=== PATIENT | male | born 2000 | race Caucasian/White ===

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

== ENCOUNTER 2020-04-23 14:18 | Inpatient (IN) ==
[2020-04-23] MEDS ORDERED: ONDANSETRON 4 MG OD TAB PO STA (14:42)
[2020-04-23] MEDS ORDERED: KETOROLAC TROMETHAMINE 15 MG/ML VIAL IV STA (14:42)
[2020-04-23] MEDS ORDERED: ONDANSETRON INJ 2 MG/ML 2 ML VIAL IV STA (15:06)
[2020-04-23] MEDS: MoRPHine SULFATE 4 MG/ML 1 ML CARP\\VIAL IV PRN ×2 (15:07→19:54)
[2020-04-23] MEDS ORDERED: SODIUM CHLORIDE 0.9% 1000ML 500 ML IV ONE (15:07)
[2020-04-23] MEDS ORDERED: SODIUM CHLORIDE 0.9% 1000ML 1,000 ML IV SCH (15:15)
[2020-04-23 15:22] LABS: Eosinophils # (auto) 0.02 K/uL (0-0.5); Eosinophils % (auto) 0.2 %; Hematocrit (blood only) 49.6 % (42-52); Hemoglobin 17.8 g/dL (14.0-18.0); Immature Granulocytes # (auto) 0.02 K/uL (0.00-0.02); Immature Granulocytes % (auto) 0.2 %; Lymphocytes # (auto) 0.71 K/uL (1.2-3.4); Lymphocytes % (auto) 7.9 %; Mean Corpuscular Hemoglobin 30.4 pg (25-34); Mean Corpuscular Hgb Conc 35.9 g/dL (32-36); Mean Corpuscular Volume 84.8 fL (80-100); Mean Platelet Volume 10.2 fL (7.4-10.4); Monocytes # (auto) 0.72 K/uL (0.11-0.59); Monocytes % (auto) 8.1 %; Neutrophils # (auto) 7.47 K/uL (1.4-6.5); Neutrophils % (auto) 83.6 %; Platelet Count 190 K/uL (130-400); RDW Coefficient of Variation 12.6 % (11.5-14.5); RDW Standard Deviation 39.4 fL (36.4-46.3); Red Blood Count 5.85 M/uL (4.7-6.1); White Blood Count 8.94 K/uL (4.8-10.8)
[2020-04-23 15:27] LABS: Appearance Urine Clear (Clear); Blood Urine Negative (Negative); Color Urine Dark Yellow; Glucose Urine UA Negative (Negative); Ketones Urine Negative (Negative); Leukocyte Esterase Urine Negative (Negative); Nitrite Urine Negative (Negative); Protein Urine Negative (Negative); Specific Gravity Urine 1.034 (1.000-1.030); Urobilinogen Urine Negative (Negative)
[2020-04-23 15:36] LABS: Bilirubin Urine Negative (Negative); Ictotest Urine Negative (Negative)
[2020-04-23 15:39] LABS: Albumin Level 4.1 gm/dl (3.4-5.0); BUN Creatinine Ratio 12.5 (10-20); Calcium 9.8 mg/dl (8.5-10.1); Creatinine Clr Calc Pharmacy 135.3 ml/min; Est GFR (African American) 115.7; Est GFR (Non-African American) 99.8; Potassium 3.7 mmol/L (3.5-5.1)
[2020-04-23 15:42] LABS: Albumin Globulin Ratio 0.9 (0.9-2); Globulin 4.4 gm/dl (2.5-4.0); Total Protein 8.5 gm/dl (6.4-8.2)
[2020-04-23] MEDS ORDERED: IOVERSOL 100ml IV ONE (16:10)
--- NOTE | 2020-04-23 16:25 | CT Scan Report ---
ABDOMEN AND PELVIS CT WITH IV CONTRAST CT DOSE: 1119.51 mGycm HISTORY: Right upper right lower quadrant pain. TECHNIQUE: Multiaxial CT images of the abdomen and pelvis were performed following the use of intrave nous contrast. A dose lowering technique was utilized adhering to the principles of ALARA. COMPARISON STUDY: Abdomen and pelvis CT 10/27/2019. FINDINGS: The lung bases are clear. No pneumoperitoneum. No pneumatosis. The liver, spleen, adrenal g lands, pancreas, gallbladder, and left kidney are unremarkable. An 8 mm hypodense lesion within the l ower pole the right kidney. This remains unchanged. This is technically too small to characterize but favors a cyst. No retroperitoneal lymphadenopathy. The main portal vein is patent. Normal caliber ab dominal aorta. The bladder is unremarkable. Trace pelvic free fluid. No fractures within the visualiz ed osseous structures. Slightly prominent fluid-filled loops of small bowel in the right upper quadra nt. Multiple thickened loops of distal ileum to the level of the ileocecal valve. These thickened loo ps of small bowel are seen within the right lower quadrant and deep pelvis. A few prominent ileocolic lymph nodes which are likely reactive. The colon and appendix appear within normal limits. IMPRESSION: 1. Multiple thickened loops of distal ileum to the level of the ileocecal valve consistent with a non specific ileitis. This favors an infectious or inflammatory process such as Crohn's disease. 2. A few borderline dilated fluid-filled loops of mid small bowel within the right side of the the ab domen. This could represent a low-grade partial bowel obstruction secondary to the thickened loops of distal ileum. 3. Normal appendix. ACT 112: Negative or not required by law. Electronically signed by: Gideon Keith M.D. 04/23/2020 4:24 PM
[2020-04-23] MEDS ORDERED: ACETAMINOPHEN 325 MG TAB PO STA (17:04)
[2020-04-23] MEDS ORDERED: ACETAMINOPHEN 325 MG TAB PO PRN (17:05)
[2020-04-23] MEDS ORDERED: ONDANSETRON INJ 2 MG/ML 2 ML VIAL IV PRN (17:39)
--- NOTE | 2020-04-23 18:20 | History & Physical Report ---
Date of Service April 23, 2020 Assessment & Plan (1) Ileitis: hx most consistent w viral GE, although CT does raise concern for crohns. sx improving. for now supportive care. will ask GI for opinion and/or consideration for colo IVF for dehydration clear liquid diet since sx improving and he's feeling better morphine prn pain (2) DVT prophylaxis: young, healthy, mobile - treatment not indicated (3) Discharge planning issues: admit med surg, care as above, await GI input. home once pain controlled/symptoms abating, tolerating PO History of Present Illness Chief Complaint: abdominal pain Primary Care Provider: NO PCP yesterday fairly abrupt onset of abdominal pain and watery diarrhea (not bloody) - multiple episodes, pain would come and go in waves. some chills and sweats. maybe a little nausea no vomiting. figured it was a stomach bug so he just managed at home - but today pain got more intense and while still coming and going in waves, was intense enough and often enough he was a bit worried about appendicitis - came to ER for further eval. here CT showed a nonspecific ileitis. now actually feeling better - pain meds helped, and since here he's had more stool - still loose but thickening. stomach felt fine recently otherw ise - except for one day of diarrhea and nausea about 1-2wks ago - although at that time there were other people at work who had food poisoning. Allergies Allergy/AdvReac Type Severity Reaction Status Date / Time No Known Allergies Allergy Verified 04/23/20 15:40 Home Medications Home Medications Medication Instructions Recorded Confirmed Type No Known Home Medications 04/23/20 04/23/20 History Past Med/Surg History Medical History (Updated 04/23/20 @ 18:18 by Landon Houser DO) No significant past medical history Family History (Updated 04/23/20 @ 18:16 by Landon Houser DO) Other Adopted Social History Smoking Status: Never smoker Tobacco Type: Smokeless Tobacco (Dip or Chew) Preferred Language: Cymraes Feels Safe at Home: Yes Review of Systems Review of Systems: All systems reviewed & are unremarkable except as noted in HPI & below Physical Exam Physical Exam: gen aaox3 pleasant fatigued nad heent nc at mmm neck full ROM cardio reg no r/m/g lungs cta b/l no rrw good effort abd soft nondistended, no upper tenderness mild LLQ mostly seems to refer R, fairly severe RLQ and suprapubic tenderness but no guarding no rebound no rigidity ext - no c/c/e no calf tenderness skin no rashes no pallor or icterus neuro - cn 2-12 grossly intact gross motor/sensory intact mental - good recent and remote recall normal mood and affect good judgement and insight Results & Data Results & Data ([facility]) Vital Signs (Past 12 Hours) Vital Signs Temp Pulse Pulse Resp BP BP Pulse Ox 04/23/20 18:05 74 24 109/70 97 04/23/20 18:00 74 24 109/70 97 04/23/20 17:30 73 19 121/68 97 04/23/20 17:01 82 18 109/75 98 04/23/20 16:30 73 25 H 97/52 L 96 04/23/20 16:23 71 75 15 127/72 127/72 98 04/23/20 16:00 64 20 122/76 96 04/23/20 15:30 71 17 101/53 L 95 04/23/20 15:02 88 87 16 132/84 132/84 96 04/23/20 14:19 98.6 F 91 H 20 126/94 98 Code Status & VTE Plan VTE Prophylaxis Plan VTE Prophylaxis will be ordered: No PG Care Time/CCT Total # of Minutes Spent Total Time Spent with Patient: Total time spent is greater than 50% in coordination of care (as documented) at patient's floor/unit and/or counseling patient: Coding Level of Care Code 49793 Initial Inpt Care Lvl 3 Diagnoses Ileitis K52.9 DVT prophylaxis Z29.9 Discharge planning issues Z02.9
--- NOTE | 2020-04-23 18:48 | Emergency Department Note ---
ED Visit Note Patient seen and evaluated in conjunction with Dr. Carpenter in the ED. Please see her note for medical decision making. . Resident Activity Tracking Resident Involvement: Resident Care Provided Care Provided: Adult ED
[2020-04-23] MEDS: LACTATED RINGER'S 1,000 ML IV SCH (19:47)
--- NOTE | 2020-04-23 19:50 | Emergency Department Note ---
History of Present Illness General Chief complaint: Abdominal Pain Stated complaint: RT SIDED ABD PAIN,LIGHT HEADED, DIZZY,DIARRHEA Time Seen by Provider: 04/23/20 14:34 Source: patient and RN notes reviewed Mode of arrival: ambulatory Limitations: no limitations History of Present Illness Provider complaint: Right-sided abdominal pain, diarrhea, lightheaded Maximum Pain Intensity: 8 This patient is a 19-year-old male who presents emergency department with complaints of right upper and lower abdominal pain for the last 12 to 24 hours. Patient states it began with significant amounts of diarrhea yesterday. He states he "could not leave the toilet." He denies blood in the stools. Patient denies any vomiting or fevers. 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 He denies chest pain, shortness of breath and does feel as though the pain is exacerbated after eating. He denies any difficulty with urination. 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 and A total of 10 systems reviewed and were otherwise negative Physical Exam Vital Signs Vital Signs - 24 hr 04/23/20 14:19 04/23/20 15:02 04/23/20 15:30 Temperature 37 C Temperature Source Oral Pulse Rate 91 H 88 71 Pulse Rate [Apical] 87 Pulse Rate from SpO2 Sensor 83 71 Pulse Rhythm Regular Regular Pulse Rhythm [Apical] Regular Pulse Strength [Apical] Normal Respiratory Rate 20 16 17 Respiratory Effort / Characteristics Non-Labored Spontaneous Non-Labored Spontaneous Respiratory Depth Normal Normal Respiratory Pattern Regular Regular Blood Pressure 126/94 132/84 101/53 L Blood Pressure [Left Arm] 132/84 Blood Pressure Mean 104 107 64 Blood Pressure Mean [Left Arm] 100 Blood Pressure Position [Left Arm] Semi-fowlers Pulse Oximetry 98 96 95 Oxygen Delivery Method Room Air Room Air Room Air Sepsis Recent Fever Within 48 Hours No Sepsis New/Unexplained Change in Mental Status No Sepsis Action Taken by Nursing No Action Required 04/23/20 16:00 04/23/20 16:23 04/23/20 16:30 Temperature Temperature Source Pulse Rate 64 71 73 Pulse Rate [Apical] 75 Pulse Rate from SpO2 Sensor 63 73 74 Pulse Rhythm Pulse Rhythm [Apical] Regular Pulse Strength [Apical] Normal Respiratory Rate 20 15 25 H Respiratory Effort / Characteristics Non-Labored Spontaneous Respiratory Depth Normal Respiratory Pattern Regular Blood Pressure 122/76 127/72 97/52 L Blood Pressure [Left Arm] 127/72 Blood Pressure Mean 81 83 66 Blood Pressure Mean [Left Arm] 90 Blood Pressure Position [Left Arm] Semi-fowlers Pulse Oximetry 96 98 96 Oxygen Delivery Method Room Air Sepsis Recent Fever Within 48 Hours Sepsis New/Unexplained Change in Mental Status Sepsis Action Taken by Nursing 04/23/20 17:01 04/23/20 17:30 Temperature Temperature Source Pulse Rate 82 73 Pulse Rate [Apical] Pulse Rate from SpO2 Sensor 79 72 Pulse Rhythm Pulse Rhythm [Apical] Pulse Strength [Apical] Respiratory Rate 18 19 Respiratory Effort / Characteristics Respiratory Depth Respiratory Pattern Blood Pressure 109/75 121/68 Blood Pressure [Left Arm] Blood Pressure Mean 92 86 Blood Pressure Mean [Left Arm] Blood Pressure Position [Left Arm] Pulse Oximetry 98 97 Oxygen Delivery Method Sepsis Recent Fever Within 48 Hours Sepsis New/Unexplained Change in Mental Status Sepsis Action Taken by Nursing Vital signs reviewed. General: Well-appearing 19-year-old male, in no significant distress. HEENT: No scleral icterus, PERRLA, neck supple. Atraumatic. Cardiovascular: Regular rate and rhythm, no extra sounds. Pulmonary: Clear to auscultation bilaterally, normal work of breathing. Abdomen: Soft, tender to palpation in the right lower quadrant, positive guarding, nondistended, positive bowel sounds. Musculoskeletal: Atraumatic, no peripheral edema. Neurologic: Patient awake alert and oriented x 3 Skin: Warm, dry, no rash Course Administered Medications Lactated Ringer's (Lr) 1,000 mls @ 125 mls/hr IV .Q8H FREDERICK Stop: 05/23/20 19:23 Last Admin: 04/23/20 19:47 Dose: 125 mls/hr Documented by: [id number] Morphine Sulfate (Morphine Sulfate 4 Mg/Ml 1 Ml Carp\\Vial) 4 mg IV Q3H PRN PRN Reason: Pain (6,7,8,9,10) Stop: 05/07/20 14:55 Last Admin: 04/23/20 19:54 Dose: 4 mg Documented by: [id number] Admin: 04/23/20 15:07 Dose: 4 mg Documented by: [id number] Discontinued Medications Acetaminophen (Acetaminophen 325 Mg Tab) 650 mg PO Q8 STA Stop: 04/23/20 17:05 Last Admin: 04/23/20 17:08 Dose: Not Given Documented by: [id number] Sodium Chloride (Nss 1000ml) 500 mls @ 999 mls/hr IV .Q31M ONE Stop: 04/23/20 15:37 Last Infusion: 04/23/20 15:45 Dose: 0 mls/hr Documented by: [id number] Admin: 04/23/20 15:12 Dose: 999 mls/hr Documented by: [id number] Sodium Chloride (Nss 1000ml) 1,000 mls @ 200 mls/hr IV .Q5H FREDERICK Stop: 05/23/20 15:14 Last Infusion: 04/23/20 18:09 Dose: 0 mls/hr Documented by: [id number] Infusion: 04/23/20 18:09 Dose: 0 mls/hr Documented by: [id number] Admin: 04/23/20 15:52 Dose: 200 mls/hr Documented by: [id number] Ioversol (Ioversol 100ml) 93 ml IV ONCE ONE Stop: 04/23/20 16:11 Last Admin: 04/23/20 16:10 Dose: 1 ml Documented by: [id number] Ketorolac Tromethamine (Ketorolac Tromethamine 15 Mg/Ml Vial) 15 mg IV NOW STA Stop: 04/23/20 14:43 Last Admin: 04/23/20 15:52 Dose: Not Given Documented by: [id number] Ondansetron HCl (Ondansetron 4 Mg Od Tab) 4 mg PO NOW STA Stop: 04/23/20 14:43 Last Admin: 04/23/20 15:07 Dose: 4 mg Documented by: [id number] Ondansetron HCl (Ondansetron Inj 2 Mg/Ml 2 Ml Vial) 4 mg IV NOW STA Stop: 04/23/20 15:07 Last Admin: 04/23/20 15:12 Dose: 4 mg Documented by: [id number] Medical Decision Making Differential Diagnosis Differential diagnosis: Etiologies such as biliary colic, cholecystitis, hepatitis, pancreatitis, cardiac disease, pancreatitis, gastritis, peptic ulcer disease, appendicitis, cystitis, diverticulitis, mesenteric ischemia, inflammatory bowel disease, ileus, bowel obstruction, testicular torsion, aortic pathology, shingles, as well as others were considered. Medical Records Attestation: I reviewed the patient's medical records. Home Medications Current Medication List: was personally reviewed by me Laboratory Data Attestation: I reviewed the patient's lab results. Result diagrams: 04/23/20 14:57 04/23/20 14:57 Lab Results 04/23/20 04/23/20 04/23/20 Range/Units 14:51 14:57 14:57 WBC 8.94 (4.8-10.8) K/uL RBC 5.85 (4.7-6.1) M/uL Hgb 17.8 (14.0-18.0) g/dL Hct 49.6 (42-52) % MCV 84.8 (80-100) fL MCH 30.4 (25-34) pg MCHC 35.9 (32-36) g/dL RDW Std Deviation 39.4 (36.4-46.3) fL RDW Coeff of [place] 12.6 (11.5-14.5) % Plt Count 190 (130-400) K/uL MPV 10.2 (7.4-10.4) fL Immature Gran % (Auto) 0.2 % Neut % (Auto) 83.6 % Lymph % (Auto) 7.9 % [place] % (Auto) 8.1 % Eos % (Auto) 0.2 % Baso % (Auto) 0.0 % Neut # (Auto) 7.47 H (1.4-6.5) K/uL Lymph # (Auto) 0.71 L (1.2-3.4) K/uL [place] # (Auto) 0.72 H (0.11-0.59) K/uL Eos # (Auto) 0.02 (0-0.5) K/uL Baso # (Auto) 0.00 (0-0.2) K/uL Immature Gran # (Auto) 0.02 (0.00-0.02) K/uL Sodium 138 (136-145) mmol/L Potassium 3.7 (3.5-5.1) mmol/L Chloride 105 (98-107) mmol/L Carbon Dioxide 26 (21-32) mmol/L Anion Gap 7.0 (3-11) BUN 13 (7-18) mg/dl Creatinine 1.06 (0.6-1.4) mg/dl Est Cr Clr Drug Dosing 135.3 ml/min Est GFR ( Amer) 115.7 Est GFR (Non-Af Amer) 99.8 BUN/Creatinine Ratio 12.5 (10-20) Glucose 90 (70-99) mg/dl Calcium 9.8 (8.5-10.1) mg/dl Total Bilirubin 1.0 (0.2-1) mg/dl AST 13 L (15-37) U/L ALT 27 (12-78) U/L Alkaline Phosphatase 52 (45-117) U/L Total Protein 8.5 H (6.4-8.2) gm/dl Albumin 4.1 (3.4-5.0) gm/dl Globulin 4.4 H (2.5-4.0) gm/dl Albumin/Globulin Ratio 0.9 (0.9-2) Lipase 73 (73-393) U/L Urine Color Dark Yellow Urine Appearance Clear (Clear) Urine pH 5.0 (4.5-7.5) Ur Specific [place] 1.034 H (1.000-1.030) Urine Protein Negative (Negative) Urine Glucose (UA) Negative (Negative) Urine Ketones Negative (Negative) Urine Blood Negative (Negative) Urine Nitrite Negative (Negative) Urine Bilirubin Negative (Negative) Urine Urobilinogen Negative (Negative) Ur Leukocyte Esterase Negative (Negative) Imaging Data Radiologist's Impression: ABDOMEN AND PELVIS CT WITH IV CONTRAST CT DOSE: 1119.51 mGycm HISTORY: Right upper right lower quadrant pain. TECHNIQUE: Multiaxial CT images of the abdomen and pelvis were performed following the use of intravenous contrast. A dose lowering technique was utilized adhering to the principles of ALARA. COMPARISON STUDY: Abdomen and pelvis CT 10/27/2019. FINDINGS: The lung bases are clear. No pneumoperitoneum. No pneumatosis. The liver, spleen, adrenal glands, pancreas, gallbladder, and left kidney are unremarkable. An 8 mm hypodense lesion within the lower pole the right kidney. This remains unchanged. This is technically too small to characterize but favors a cyst. No retroperitoneal lymphadenopathy. The main portal vein is patent. Normal caliber abdominal aorta. The bladder is unremarkable. Trace pelvic free f luid. No fractures within the visualized osseous structures. Slightly prominent fluid-filled loops of small bowel in the right upper quadrant. Multiple thickened loops of distal ileum to the level of the ileocecal valve. These thickened loops of small bowel are seen within the right lower quadrant and deep pelvis. A few prominent ileocolic lymph nodes which are likely reactive. The colon and appendix appear within normal limits. IMPRESSION: 1. Multiple thickened loops of distal ileum to the level of the ileocecal valve consistent with a nonspecific ileitis. This favors an infectious or inflammatory process such as Crohn's disease. 2. A few borderline dilated fluid-filled loops of mid small bowel within the right side of the the abdomen. This could represent a low-grade partial bowel obstruction secondary to the thickened loops of distal ileum. 3. Normal appendix. ACT 112: Negative or not required by law. Electronically signed by: Gideon Keith M.D. 04/23/2020 4:24 PM Dictated: 04/23/20 161 Transcribed: 04/23/201616 Blood Pressure Blood Pressure Findings: Normal blood pressure Blood Pressure Disposition: did not require urgent referral MDM Narrative This patient was evaluated and appeared to be in some discomfort. IV access was obtained and laboratory work was drawn. An order for cardiac monitoring was placed and the patient is noted to be in a sinus rhythm at 86 bpm. Patient was medicated with 4 mg of IV morphine and 4 mg Zofran ODT. The patient vomited shortly thereafter. 4 mg of IV Zofran was then administered and the patient was hydrated with normal saline solution. Laboratory work reveals a normal WBC with a mild left shift. CT imaging of the abdomen and pelvis was performed due to significant tenderness over the right lower quadrant. This imaging is consistent with an acute ileitis with a possibility of a partial small bowel obstruction. There is also concern over infectious or inflammatory process. Stool cultures and C. difficile testing were ordered. Patient was advised of the findings. He was discussed with the hospitalist and will be evaluated for further management. Patient is aware of the plan and agrees. Impression & Plan Ileitis, terminal, Diarrhea Discharge Plan Visit Data Chief Complaint: Abdominal Pain Stated Complaint: RT SIDED ABD PAIN,LIGHT HEADED, DIZZY,DIARRHEA ED Provider: Emiliana Carpenter ED Midlevel Provider: Anitha Shelton Discharge Problem: Ileitis, terminal, Diarrhea Patient Disposition: Admitted As Inpatient Discharge Instructions Interventions: ED Discharge Assessment Last Done: 04/23/20 18:05 Discharge Problem: Ileitis, terminal Qualifiers: Digestive disease complication type: without complication Qualified Code(s): K50.00 - Crohn's disease of small intestine without complications Diarrhea Qualifiers: Diarrhea type: unspecified type Qualified Code(s): R19.7 - Diarrhea, unspecified
[2020-04-24] MEDS: MoRPHine SULFATE 4 MG/ML 1 ML CARP\\VIAL IV PRN ×2 (03:04→08:15)
[2020-04-24] MEDS: LACTATED RINGER'S 1,000 ML IV SCH ×2 (03:05→10:37)
--- NOTE | 2020-04-24 09:58 | Gastrointestinal Consultation ---
Date of Consultation April 24, 2020 Assessment & Plan (1) Ileitis, terminal: (2) Diarrhea: Differential diagnoses include: viral vs bacterial vs Crohn's vs other. Given patient is clinically improved, suspect a self limited gastroenteritis. Discussed case with Dr. Houser and patient likely to be discharged today. Discussed that he should have close outpatient follow up in our office. Can discuss the utility of outpatient colonoscopy at that time. Can advance diet as tolerated. Recommend ongoing NSAID avoidance and supportive care. Thank you for allowing us to participate in the care of this pleasant patient. If you have any questions or concerns, please do not hesitate to contact us. Supervising Physician Co-Signing Physician Notes I personally evaluated the patient and agree with the findings as documented by GUI Rodriguez Exam: abd: soft, nt, nd will need outpatient colonoscopy to further evaluate ileitis. History of Present Illness Reason for Consultation: Nonspecific ileitis Requesting Physician: Dr. Houser Attending Physician: Landon Houser DO History of Present Illness Patient is a pleasant 19 year-old male admitted after an abrupt onset of abdom inal pain and watery diarrhea beginning one david prior to arrival. He states the pain was mostly in the lower abdomen and very intense when it would occur, but would wax and wane. Denies any bloody or black stools. The only associated symptoms were of fatigue and chills without fever. On arrival, he was found to be normotensive, no leukocytosis or anemia and was without any renal impairment or electrolyte imbalances. CT imaging, however, did demonstrate a nonspecific ileitis. Patient denies any NSAID use. Does use smokeless tobacco products. Family history is unknown as he is adopted. Currently, he reports near resolution of symptoms. The abdominal pain has resolved and stools are starting to form. Allergies Allergy/AdvReac Type Severity Reaction Status Date / Time No Known Allergies Allergy Verified 04/23/20 15:40 Home Medications Home Medications Medication Instructions Recorded Confirmed Type No Known Home Medications 04/23/20 04/23/20 History Patient History Medical History Otitis Surgical History H/O knee surgery History of placement of ear tubes Family History Other Adopted Social History Smoking Status: Never smoker Tobacco Type: Smokeless Tobacco (Dip or Chew) Second Hand Exposure: No; Hx Alcohol Use: Yes Hx Substance Use: No Preferred Language: Iraqi Communication Ability: Effective 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 Beliefs That Will Affect Care: None Current Living Situation: Family Feels Safe at Home: Yes Review of Systems Review of Systems: All systems reviewed & are unremarkable except as noted in HPI & below Physical Exam Constitutional: WD/WN, vitals as above Eyes: EOM intact bilaterally Neck: normal appearance Respiratory: normal respiratory effort, lungs clear to auscultation Cardiovascular: Rate/Rhythm: regular rate and regular rhythm Heart Sounds: no gallop and no murmur Gastrointestinal (Abdomen): normal bowel sounds, soft, nontender, no hepatosplenomegaly Inspection/Auscultation: abdomen not distended Musculoskeletal: Extremities: no cyanosis no lower extremity edema Skin: no rashes, warm and dry Neurologic: moves all extremities Psychiatric: A+Ox3, euthymic affect Results & Data ([facility]) Vital Signs (Past 12 Hours) Vital Signs Temp Pulse Resp BP Pulse Ox 04/24/20 07:20 36.8 C 66 14 107/71 96 04/23/20 23:00 37 C 74 18 121/77 96 Laboratory Results Abnormal lab results 04/23/20 04/23/20 04/23/20 Range/Units 14:51 14:57 14:57 Neut # (Auto) 7.47 H (1.4-6.5) K/uL Lymph # (Auto) 0.71 L (1.2-3.4) K/uL [place] # (Auto) 0.72 H (0.11-0.59) K/uL AST 13 L (15-37) U/L Total Protein 8.5 H (6.4-8.2) gm/dl Globulin 4.4 H (2.5-4.0) gm/dl Ur Specific [place] 1.034 H (1.000-1.030) PG Care Time/CCT Total # of Minutes Spent Total Time Spent with Patient: Total time spent is greater than 50% in coordinat ion of care (as documented) at patient's floor/unit and/or counseling patient: Coding Level of Care Code 47820 Inpt Consult Level 4 Diagnoses Ileitis, terminal K50.00 Digestive disease complication type: without complication Diarrhea R19.7 Diarrhea type: unspecified type (1) Ileitis, terminal Digestive disease complication type: without complication Qualified Code(s): K50.00 - Crohn's disease of small intestine without complications (2) Diarrhea Diarrhea type: unspecified type Qualified Code(s): R19.7 - Diarrhea, unspecified
--- NOTE | 2020-04-24 19:43 | Discharge Summary ---
Date of Service April 24, 2020 Admission HPI Per Admitting Provider yesterday fairly abrupt onset of abdominal pain and watery diarrhea (not bloody) - multiple episodes, pain would come and go in waves. some chills and sweats. maybe a little nausea no vomiting. figured it was a stomach bug so he just managed at home - but today pain got more intense and while still coming and going in waves, was intense enough and often enough he was a bit worried about appendicitis - came to ER for further eval. here CT showed a nonspecific ileitis. now actually feeling better - pain meds helped, and since here he's had more stool - still loose but thickening. stomach felt fine recently otherwise - except for one day of diarrhea and nausea about 1-2wks ago - although at that time there were other people at work who had food poisoning. Principal Diagnosis ileitis (viral > crohn's, clinically improving) Discharge Exam gen aaox3 pleasant nad heent nc at mmm breathing unlabored no accessory muscles good effort skin no rashes no pallor or icterus abdomen soft nd minimally tender suprapubic and many RLQ far less than yesterday. no guarding no rebound. Discharge Data Allergies Allergy/AdvReac Type Severity Reaction Status Date / Time No Known Allergies Allergy Verified 04/23/20 15:40 Consultations 04/23/20 17:39 Consult Gastroenterology Routine Ordered Studies 04/23/20 15:12 CT abd pelvis IV con only Stat Hospital Course (1) Ileitis: hx most consistent w viral GE, although CT does raise concern for crohns. sx improving. tolerated diet. stable for home. GI evaluated and agreed colo - given that pt is improved w all agree as outpt most appropriate. 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 certainly this inflammation was what was causing your pain, and the inflammation in general was what was causing your diarrhea -your clinical course of when you got sick, how it lasted, and how you got bett er certainly fit with a stomach virus as the cause, but anytime we see inflammation of the ileum, it makes us concerned about findings consistent with inflammatory bowel disease like Crohn's. for you this seems less likely, but we'll have you follow up with gastroenterology to further follow and discuss the utility of a colonoscopy -until you're totally better and have seen GI again, hold off on any anti- inflammatories (just because on the off-chance that you would have inflammatory bowel disease anti-inflammatories can acutally cause harm)(this would include advil, alleve, ibuprofen, etc) Pending Studies at Discharge: No Stand-Alone Forms: [facility], Work/School Release (Inpt), Smoking Cessation Medications and DC Order Prescriptions: No Action No Known Home Medications RF: 0 Discharge Orders: Discharge Order (Routine); Ordered 04/24/20 Ordered By: Landon Houser Admission Data Admit Date/Time: 04/23/20 17:39 Attending Provider: Landon Houser Admit Provider: Landon Houser Primary Care Provider: PCP,NO Other Providers: Isaías Montgomery Other Interventions: Discharge Summary Assessment (RN) Last Done: 04/24/20 13:15 Coding Level of Care Code D/C Day Management <30 mins Diagnoses Ileitis K52.9 DVT prophylaxis Z29.9 Discharge planning issues Z02.9
== END 2020-04-24 14:09 | disposition home or self-care (01) | DRG 392 ==
LOC: ED 14:18 → 3W 17:39